=== PATIENT | female | born 1975 | race Caucasian/White ===

== ENCOUNTER 2023-10-30 10:33 | Emergency (ER) | payer SELFPAY ==
[2023-10-30 10:35] VITALS: BP 138/94; PULSE 90; RESP 14; TEMP 36.6; O2SAT 98
--- NOTE | 2023-10-30 10:43 | W.ED.GENAD ---
Discharge Plan Disposition Patient Disposition: Home Condition: Stable Discharge Details Clinical Impression: Calcific tendinitis of right shoulder Primary Care Provider: Unknown,Unknown ED Provider: Stuart Borja Home Meds and New Rx's Prescriptions: New lidocaine 4 % adhesive patch,medicated 1 patch topical DAILY PRNQty: 10 0RF Discharge Instructions Instructions: Calcific Tendinopathy of the Shoulder (DC) Additional Instructions: You were seen in the emergency department for your right shoulder pain from repetitive motion, you do have calcific tendinitis seen on x-ray. This is the likely cause of your pain, you may seek an orthopedics appointment and I have placed you on their list for likely steroid injection. I have provided you with a sling due to your significant and severe pain currently but it is of the utmost importance that you remove the sling often throughout the day and perform pendulum and range of motion exercises to not acquire frozen shoulder. Please use therapeutic dosing of Tylenol (acetamenophen) & Advil (ibuprofen) in an alternating fashion as follows: Take 1000mg of Tylenol every 6 hours without missing doses- that is 4 times per day. Correction in between the Tylenol dosings, take 400-600mg of Advil also on a 6 hour schedule, that is also 4 times per day. The daily maximum dosing of Tylenol is 4000mg, and the daily maximum dosing of Advil is 2400mg. This is safe to do for weeks. Please note that some common cold medications & prescription pain medications may contain acetamenophen and you need to read OTC drug labels and factor that in to maximum daily dosings. Please return to the emergency department for severe increase in pain and swelling with redness and warmth to touch and extreme tenderness to the right shoulder Referrals: [facility] [Provider Group] Discharge Data Discharge Date/Time-TO BE ENTERED AT DEPARTURE: 10/30/23 12:43 HPI General Date/Time Provider Initiated Documentation: 10/30/23 10:43. HPI Narrative: 48 year-old female presents to ED today by POV/ambulating with a chief complaint of R shoulder pain - was working with shelving etc, repetitive motion injury without trauma with onset Friday. Quality described as diffuse tenderness and soreness to the right shoulder, no radiation to redness, warmth to touch, fever, trauma. Severity is described as severe. Palliating factors include holding it still and attempting pendulum exercises yesterday which made it worse. Provoking factors include nothing specific. Patient not anticoagulated. Related Data Home Medications ?Medication ?Instructions ?Recorded ?Confirmed lidocaine 4 % topical patch 1 patch topical DAILY PRN #10 ea 10/30/23 Previous Rx's ?Medication ?Instructions ?Recorded lidocaine 4 % topical patch 1 patch topical DAILY PRN #10 ea 10/30/23 Allergies Allergy/AdvReac Type Severity Reaction Status Date / Time codeine Allergy Severe Anaphylaxis Verified 10/30/23 10:40 honey Allergy Severe Anaphylaxis Verified 10/30/23 10:40 General Stated Complaint: Orthopedic BIB: 4 Review of Systems All systems reviewed & are unremarkable except as noted in HPI and below Exam Narrative Exam Narrative: GENERAL APPEARANCE: Well-nourished, non-toxic, awake and alert, atraumatic, no acute distress. SKIN: Warm, pink, dry, intact, without rashes/lesions/ulcerations. HEAD: Normocephalic, atraumatic, normal hair distribution for gender/age. EYES: Normal conjunctiva, no exudates on lids/lashes. ENT: Nares patent, no circumoral cyanosis, no facial swelling NECK: Supple, trachea midline, painless cervical ROM. LUNGS/CHEST: Non-labored respirations, normal A/P diameter, symmetrical expansion, no chest wall deformity HEART (CV/PV): Regular rate, no peripheral edema, no JVD. ABDOMEN: Soft, non-distended, no guarding. MSK: Normal ROM, no swelling/deformity to bilateral UEs or LEs, moving all extremities without weakness, no cyanosis, spine midline without tenderness, normal curvature. R UE: Diffuse tenderness to the right shoulder, limited range of motion due to pain, nonparticipatory in special testing empty can and speeds test, biceps tendon intact, right radial pulse 2+, sensation intact, shredder tender strength 5/5, no midline neck tenderness NEURO: Mental Status AAOx4 - alert to person, place, time, events No facial droop, no forehead involvement. Motor: No focal weakness - strength 5/5 in bilateral UEs and LEs, proximal and distal, symmetric. Sensory: sensation intact to light touch globally. Gait normal: patient ambulated without ataxia into ED room. PSYCH: euthymic, cooperative, pleasant, appropriate speech Course Vital Signs Vital signs: Vital Signs Temperature 36.6 C 10/30/23 10:35 Pulse 90 10/30/23 10:35 Respiratory Rate 14 10/30/23 10:35 Blood Pressure 138/94 H 10/30/23 10:35 Pulse Oximetry 98 10/30/23 10:35 Temperature 36.6 C 10/30/23 10:35 Temperature Source Skin 10/30/23 10:35 Pulse 90 10/30/23 10:35 Respiratory Rate 14 10/30/23 10:35 Blood Pressure 138/94 H 10/30/23 10:35 Blood Pressure Position Sitting 10/30/23 10:35 Pulse Oximetry 98 10/30/23 10:35 Oxygen Delivery Method Room Air 10/30/23 10:35 Oxygen Flow Rate 0 10/30/23 10:35 Pain Level 10 10/30/23 10:35 Comment heat and ice tylenol and ibuprofen lidocaine patches 10/30/23 10:35 Medical Decision Making This dictation utilizes [id number] dictation software and may contain unedited grammatical errors. 48 year-old female presents to ED today by POV/ambulating with a chief complaint of R shoulder pain - was working with shelving etc, repetitive motion injury without trauma with onset Friday. Quality described as diffuse tenderness and soreness to the right shoulder, no radiation to redness, warmth to touch, fever, trauma. Severity is described as severe. Palliating factors include holding it still and attempting pendulum exercises yesterday which made it worse. Provoking factors include nothing specific. Patients' medical history: States noncontributory. Family and social history: Noncontributory. Pertinent exam findings / vital signs include R UE: Diffuse tenderness to the right shoulder, limited range of motion due to pain, nonparticipatory in special testing empty can and speeds test, biceps tendon intact, right radial pulse 2+, sensation intact, shredder tender strength 5/5, no midline neck tenderness. Differential / pathologies of concern include calcific tendinitis, rotator cuff arthropathy, less likely biceps tendon rupture, unlikely septic arthritis. Diagnostic studies of: -XR R shoulder -shows calcific tendinitis, no AC separation or other joint abnormality. Interventions of: -Provided a sling due to the patient's level of pain, provided referral to orthopedics. 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 Patient has calcific tendinitis on x-ray, counseled on taking adequate dosing Tylenol and ibuprofen provided a sling for pain and recommended range of motion exercises consistently each day. Provided Ortho referral for 1 to 2 weeks. Findings not consistent with fracture/neurovascular compromise/septic arthritis. Disposition of calcific tendinitis of right shoulder. Patient verbalized understanding of the plan and return to ED criteria and engaged in shared decision making. Medical Records Medical records reviewed: Yes I reviewed the patient's medical records. Imaging Data Radiologic Study: Attestation: I personally reviewed and interpreted this imaging study as follows: Imaging: X-Ray Radiologist's impression: EXAM: XR SHOULDER RT COMPLETE 2+V CLINICAL HISTORY: R shoulder/humerus pain. TECHNIQUE: 2D digital imaging was performed of the right shoulder. Five images were obtained. AP, Grashey, Y-view and axillary views were obtained. COMPARISON: No exams were available for comparison FINDINGS: BONES: No acute fracture is present. No bony destructive lesion is seen. JOINTS: No dislocation present. The acromioclavicular and glenohumeral joints are well maintained. SOFT TISSUE: There is a calcifications seen at the dorsal aspect of the head likely reflecting calcific tendinitis. The underlying bone appears intact. IMPRESSION: Soft tissue calcification adjacent to the humeral head suggesting calcific tendinitis. No definite fractures identified. If there is continued concern a CT scan may be obtained for further evaluation. Quality:[facility] Health Related Social Needs: No Data to Display [facility] All Active Problems (Updated 10/30/23 @ 12:27 by LALI Woody) Calcific tendinitis of right shoulder (Acute) Social History Smoking/Tobacco Use Status: Current every day Tobacco Type: cigarettes Smoking risk assessment performed?: Yes Alcohol Intake: current Alcohol Intake frequency: holidays/special occasions only Drug use: Never Substance use type: does not use Housing: apartment Do you feel safe at home: Yes Do you feel safe in your relationship?: Yes
[2023-10-30] MEDS: Acetaminophen 325 MG TAB 650 MG PO (11:27)
[2023-10-30] MEDS: HYDROcodone 5/Acetaminophen 325 TAB PO (11:27)
[2023-10-30] MEDS: Ketorolac 10 MG TAB PO (11:27)
--- NOTE | 2023-10-30 11:44 | DI.RAD_ITS ---
Exam(s) XR SHOULDER RT COMPLETE 2+V EXAM: XR SHOULDER RT COMPLETE 2+V CLINICAL HISTORY: R shoulder/humerus pain. TECHNIQUE: 2D digital imaging was performed of the right shoulder. Five images were obtained. AP, Grashey, Y-view and axillary views were obtained. COMPARISON: No exams were available for comparison FINDINGS: BONES: No acute fracture is present. No bony destructive lesion is seen. JOINTS: No dislocation present. The acromioclavicular and glenohumeral joints are well maintained. SOFT TISSUE: There is a calcifications seen at the dorsal aspect of the head likely reflecting calcif ic tendinitis. The underlying bone appears intact. IMPRESSION: Soft tissue calcification adjacent to the humeral head suggesting calcific tendinitis. No definite f ractures identified. If there is continued concern a CT scan may be obtained for further evaluation. DATA REPOSITORY: RADIATION DOSE DELIVERED:
[2023-10-30] MEDS: Lidocaine 5% Patch 1 PATCH TP (12:42)
--- NOTE | 2023-10-30 15:49 | NUR.NOTE ---
Referral sent to orthopedics for calcific tendinitis with a shoulder immobilizer was given. Follow up in 1-2 weeks. Nursing Note:
== END 2023-10-30 12:43 | disposition home or self-care (01) ==
PROVIDERS: Emergency Provider Physician Assistant
DX: M75.31 Calcific tendinitis of right shoulder (principal)
CPT/HCPCS: 99283; 73030